=== PATIENT | female | born 1985 | race Caucasian/White ===

== ENCOUNTER 2024-04-20 08:26 | Outpatient (CLI) | payer BC, SELFPAY ==
[2024-04-22 02:51] LABS: HPV Source Cervix; HPV, High Risk by TMA Not Detected
== END 2024-04-20 08:27 | disposition home or self-care (01) ==
PROVIDERS: PCP Nurse Practitioner Family; Visit Provider Nurse Practitioner Family
DX: Z00.00 Encounter for general adult medical examination without abnormal findings (principal); E03.9 Hypothyroidism, unspecified; N97.9 Female infertility, unspecified; F41.8 Other specified anxiety disorders; Z12.4 Encounter for screening for malignant neoplasm of cervix; Z13.6 Encounter for screening for cardiovascular disorders; Z13.1 Encounter for screening for diabetes mellitus
CPT/HCPCS: 80048; 80061; 84443; 87624; 87625; 88141; 88142

== ENCOUNTER 2024-05-29 15:35 | Outpatient (CLI) | payer BC, SELFPAY | END 2024-05-29 15:36 | disposition home or self-care (01) | LOC: US 15:36 | PROVIDERS: PCP Nurse Practitioner Family; Visit Provider Nurse Practitioner Family | DX: E04.9 Nontoxic goiter, unspecified (principal) | CPT/HCPCS: 76536 ==